=== PATIENT | male | born 1955 | race African-American/Black ===

== ENCOUNTER 2017-01-11 13:43 | Inpatient (IN) | payer OTHER ==
[~2017-01-11] VITALS: Ht 195.6 cm; Wt 113.9 kg
[~2017-01-11 13:43] MED LIST: IOHEXOL-350 100 ML BOTTLE ONE; SODIUM CHLORIDE 0.9% 10ML VIAL ONE
[2017-01-11] MEDS ORDERED: TETRACAINE 0.5% OPHTH DROPS 4ML OP ONE (15:00)
[2017-01-11] MEDS ORDERED: FLUORESCEIN SODIUM 1MG/STRIP OP ONE (15:00)
[2017-01-11] MEDS ORDERED: HYDRALAZINE 20MG/ML VIAL IV ONE ×2 (16:15→18:00)
[2017-01-11 16:24] LABS: BASOPHILS % 1.3 % (0.0-2.0); EOSINOPHILS % 2.2 % (0.0-5.0); HEMATOCRIT. 53.1 % (42.0-52.0); HEMOGLOBIN. 17.7 g/dL (14.0-18.0); LYMPHOCYTES % 27.1 % (20.0-50.0); MEAN CORPUSCULAR HEMOGLOBIN 31.6 pg (28.0-32.0); MEAN CORPUSCULAR HGB CONC 33.2 g/dL (31.0-37.0); MEAN CORPUSCULAR VOLUME 95.1 fL (80.0-94.0); MEAN PLATELET VOLUME 8.3 fl (7.4-10.4); MONOCYTES % 10.2 % (2.0-8.0); NEUTROPHILS % 59.2 % (40.0-76.0); PLATELET 173 x1000/uL (130-400); RED BLOOD CELL COUNT 5.58 mill/uL (4.7-6.1); RED CELL DISTRIBUTION WIDTH 14.8 % (11.6-14.6); WHITE BLOOD COUNT 5.7 x1000/uL (4.5-11.0)
[2017-01-11 16:27] LABS: CHLORIDE 108 mEq/L (98-107); INDEX HEMOLYSI 1 (1-3); INDEX ICTERIC 1 (1-4); INDEX LIPEMIC 1 (1-3)
[2017-01-11 16:32] LABS: ALBUMIN 4.1 g/dL (3.4-5.0); ANION GAP 12; CALCIUM 9.9 mg/dL (8.5-10.1); CARBON DIOXIDE 28 mEq/L (21-32); UREA NITROGEN BLOOD 7 mg/dL (7-21)
[2017-01-11 16:34] LABS: ALANINE AMINOTRANSFERASE 33 IU/L (13-61); eGFR > 60 mL/min (>60)
[2017-01-11] MEDS ORDERED: ASPIRIN 325MG EC TABLET PO ONE (19:15)
[2017-01-11 21:50] VITALS: BP 194/121
[2017-01-11] MEDS ORDERED: MAGNESIUM/ALUMINUM HYDROXIDE/SIMETHICONE 30ML UDC PO PRN (22:30)
[2017-01-11] MEDS ORDERED: DIPHENHYDRAMINE 50MG/ML VIAL IV PRN (22:30)
[2017-01-11] MEDS ORDERED: ACETAMINOPHEN 650MG SUPP PR PRN (22:30)
[2017-01-11] MEDS ORDERED: AMLODIPINE 10MG TABLET PO NR (22:30)
[2017-01-11] MEDS ORDERED: NA PHOS,M-B/NA PHOS,DI-BA ENEMA 118ML PR PRN (22:30)
[2017-01-11] MEDS ORDERED: IPRATROPIUM/ALBUTEROL 0.5-3(2.5)MG/3ML NEB INH PRN (22:30)
[2017-01-11] MEDS ORDERED: ACETAMINOPHEN 650MG/20.3ML UDC GT PRN (22:30)
[2017-01-11] MEDS ORDERED: ONDANSETRON HCL 4MG/2ML VIAL IV PRN (22:30)
[2017-01-11] MEDS: BENAZEPRIL 5MG TABLET PO SCH (22:42)
[2017-01-12] VITALS: BP 169/110
[2017-01-12 03:35] LABS: CLARITY URINE CLEAR (CLEAR); COLOR URINE YELLOW (YELLOW); GLUCOSE URINE NEGATIVE (NEGATIVE); KETONES URINE NEGATIVE (NEGATIVE); LEUKOCYTE ESTERASE URINE NEGATIVE (NEGATIVE); NITRITE URINE NEGATIVE (NEGATIVE); OCCULT BLOOD URINE NEGATIVE (NEGATIVE); PH URINE 7.5 (4.5-8.0); PROTEIN URINE NEGATIVE (NEGATIVE); SPECIFIC GRAVITY URINE 1.046 (1.005-1.030); UROBILINOGEN URINE 0.2 E.U./dL (0.2-1.0)
[2017-01-12 04:00] VITALS: BP 133/95
[2017-01-12 04:34] LABS: *AMPHETAMINES SCREEN URINE NEGATIVE (NEGATIVE); *BARBITURATES SCREEN URINE NEGATIVE (NEGATIVE); *BENZODIAZEPINES SCREEN URINE NEGATIVE (NEGATIVE); *COCAINE SCREEN URINE NEGATIVE (NEGATIVE); CANNABINOID URINE SCREEN NEGATIVE (NEGATIVE); ECSTASY MDMA SCREEN URINE NEGATIVE (NEGATIVE); METHADONE URINE SCREEN NEGATIVE (NEGATIVE); OPIATES URINE SCREEN NEGATIVE (NEGATIVE); PHENCYCLIDINE URINE SCREEN NEGATIVE (NEGATIVE)
[2017-01-12] MEDS: SODIUM CHLORIDE 0.9% INJ 3ML FLUSH IVF SCH ×3 (06:16→21:58)
[2017-01-12 08:48] LABS: TROPONIN I 0.14 ng/mL (0.00-0.04)
[2017-01-12] MEDS: ASPIRIN 325MG EC TABLET PO SCH (08:50)
[2017-01-12] MEDS: ACETAMINOPHEN 325MG TABLET PO PRN (08:51)
[2017-01-12] MEDS: ENOXAPARIN 30MG/0.3ML SYR SUBCUT SCH ×2 (08:51→21:57)
[2017-01-12] MEDS: BENAZEPRIL 5MG TABLET PO SCH (08:52)
[2017-01-12] MEDS: AMLODIPINE 10MG TABLET PO SCH (08:52)
[2017-01-12 10:16] VITALS: BP 146/103
[2017-01-12 12:00] VITALS: BP 146/96
[2017-01-12] MEDS: CLONIDINE 0.1MG TABLET PO PRN (13:39)
[2017-01-12 16:00] VITALS: BP 115/75
[2017-01-12 16:00] LABS: TROPONIN I 0.1 ng/mL (0.00-0.04)
[2017-01-12] MEDS ORDERED: LOT10 PO (16:09)
[2017-01-12] MEDS ORDERED: AMLO10TA80 PO (16:09)
[2017-01-12] MEDS ORDERED: ASPI-867 PO (16:09)
[2017-01-12 16:53] LABS: INDEX HEMOLYSI 2 (1-3)
[2017-01-12 17:08] LABS: VITAMIN B12 SERUM 304 pg/mL (211-911)
[2017-01-12 20:00] VITALS: BP 127/80
[2017-01-12 20:30] LABS: BASOPHILS % 1.3 % (0.0-2.0); EOSINOPHILS % 3.3 % (0.0-5.0); HEMATOCRIT. 51.6 % (42.0-52.0); HEMOGLOBIN. 16.9 g/dL (14.0-18.0); LYMPHOCYTES % 28.4 % (20.0-50.0); MEAN CORPUSCULAR HEMOGLOBIN 31.2 pg (28.0-32.0); MEAN CORPUSCULAR HGB CONC 32.7 g/dL (31.0-37.0); MEAN CORPUSCULAR VOLUME 95.3 fL (80.0-94.0); MEAN PLATELET VOLUME 8.6 fl (7.4-10.4); MONOCYTES % 9.6 % (2.0-8.0); NEUTROPHILS % 57.4 % (40.0-76.0); PLATELET 169 x1000/uL (130-400); RED BLOOD CELL COUNT 5.42 mill/uL (4.7-6.1); WHITE BLOOD COUNT 6.6 x1000/uL (4.5-11.0)
[2017-01-12 20:51] LABS: ALANINE AMINOTRANSFERASE 30 IU/L (13-61); ALBUMIN 4.1 g/dL (3.4-5.0); ANION GAP 14; CALCIUM 9.5 mg/dL (8.5-10.1); CARBON DIOXIDE 24 mEq/L (21-32); CHLORIDE 106 mEq/L (98-107); INDEX HEMOLYSI 2 (1-3); INDEX ICTERIC 1 (1-4); INDEX LIPEMIC 1 (1-3); UREA NITROGEN BLOOD 14 mg/dL (7-21); eGFR > 60 mL/min (>60)
[2017-01-13] VITALS: BP 138/92
[2017-01-13] MEDS: ACETAMINOPHEN 325MG TABLET PO PRN (00:21)
[2017-01-13 04:00] VITALS: BP 161/111
[2017-01-13] MEDS: SODIUM CHLORIDE 0.9% INJ 3ML FLUSH IVF SCH ×2 (05:54→14:20)
[2017-01-13] MEDS: CLONIDINE 0.1MG TABLET PO PRN (05:54)
[2017-01-13 07:30] VITALS: BP 137/91
[2017-01-13] MEDS ORDERED: BENAZEPRIL 10MG TABLET PO SCH (09:00)
[2017-01-13] MEDS: AMLODIPINE 10MG TABLET PO SCH (09:06)
[2017-01-13] MEDS: ASPIRIN 325MG EC TABLET PO SCH (09:06)
[2017-01-13] MEDS: ENOXAPARIN 30MG/0.3ML SYR SUBCUT SCH (09:07)
[2017-01-13] MEDS: HYDRALAZINE HCL 25MG TABLET PO SCH ×2 (09:09→14:22)
[2017-01-13] MEDS ORDERED: GADOBENATE DIMEGLUMINE 529 MG/ML 10ML IV ONE (10:53)
[2017-01-13 12:00] VITALS: BP 143/88
[2017-01-13 14:33] VITALS: BP 143/88
== END 2017-01-13 14:57 | disposition home or self-care (01) | DRG 199 ==
LOC: ER 13:43 → 8WST 19:03
PROVIDERS: ADMIT Family Medicine; ATTEND Family Medicine
DX: I16.1 Hypertensive emergency (principal); H34.10 Central retinal artery occlusion, unspecified eye; F17.200 Nicotine dependence, unspecified, uncomplicated; H53.2 Diplopia; Z88.0 Allergy status to penicillin; H26.9 Unspecified cataract
CPT/HCPCS: 36415; 70496; 70498; 70544; 70547; 70553; 80053; 80061; 80305; 81003; 82550; 82607; 84484; 85025; 85651; 86140; 86592; 93005; 96374; 96376; 97162; 99285; A4216; A9577; J0360; J1200; J1650; J7050; Q9967